=== PATIENT | male | born 1985 | race Caucasian/White ===

== ENCOUNTER 2017-10-26 18:18 | Observation (INO) ==
--- NOTE | 2017-10-26 18:30 | PDOC ---
Neuro Symptoms / Deficit HPI - General Chief Complaint: Neurological Complaints Stated Complaint: SEIZURE Date Seen by Provider: 10/26/17 Time Seen by Provider: 18:30 Source: POSITIVE: Patient Exam Limitations: POSITIVE: Clinical condition - History of Present Illness Initial Comments: Patient is a 31-year-old male who presents to the emergency room with a seizure. Patient earlier today was found passed out in his vehicle at work. They send him home. This evening he had a witnessed seizure by friends. Paramedics picked him up and he was postictal. He is slowly improving. Patient did bite his tongue. Patient complains of lower back pain. Mild in severity. No exacerbating or relieving factors and no radiation. Patient denies a headache. Other history does include that he has prior drug use and has heavy alcohol use. He stopped drinking about 5 days ago. - Patient Home Medications Home Medications: Home Medications EPINEPHrine Auto-Injector [Epipen Inj] 0.3 mg IM PRN PRN 02/20/14 - Patient Allergies Allergies/Adverse Reactions: Allergies 3 Allergy/AdvReac Type Severity Reaction Status Date / Time Penicillins Allergy Severe Anaphylaxis Verified 10/26/17 20:23 venom-honey bee Allergy Anaphylaxis Verified 10/26/17 20:23 [bee venom (honey bee)] Past Medical History - heen HEENT History: Denies History Cardiovascular History: Denies History Respiratory History: Denies History Gastrointestinal History: Other (please comment) Additional Gastrointestinal History: INGUINAL HERNIA CHILD Genitourinary History: Denies History Endocrine History: Denies History Musculoskeletal History: Denies History Prosthesis or Implant: No Neurological History: Denies History Blood Disorders: Denies History Psychiatric History: Denies History Cancer History: Denies History History of MDRO: No Alcohol Use: None In the Past 12 Months, Have Used or Abuse Any Substance: None Previous Surgical History: Yes Type / Date of Surgery: HERNIA CHILD Anesthesia Reactions: No Malignant Hyperthermia: No Significant Family History: No pertinent family hx Past Medical History Reviewed: Reviewed - No Changes ROS - Limitations ROS Limitations: No Limitations Constitution: REPORTS: Denies Symptoms Cardiovascular: REPORTS: Denies Cardiac Symptoms Respiratory: REPORTS: Denies Resp Symptoms Neurological: REPORTS: Seizure Activity Gastrointestinal: REPORTS: Denies GI Symptoms Endocrine: REPORTS: Denies Symptoms Musculoskeletal: REPORTS: Back Pain Genitourinary: REPORTS: Denies Symptoms Eyes: REPORTS: Denies Symptoms ENT: REPORTS: Denies Symptoms Skin: REPORTS: Denies Skin Symptoms Lympathic: REPORTS: Denies Lympathic Symptoms Immunologic: POSITIVE: Denies Symptoms Psychiatric: POSITIVE: Denies Psych Symptoms Neuro Symptoms / Deficit Exam - General Appearance General Appearance: POSITIVE: No Acute Distress - HEENT HEENT: POSITIVE: Head Inspection Nml, Other (There is a bite to the right side of the tongue. No active hemorrhage.) - Pupil Size Pupil Size: 3 mm: Bilateral - Neuro / Psych Higher Functions: POSITIVE: Oriented to Person, Oriented to Place, Oriented to Time, Normal Speech Cranial Nerves: POSITIVE: Normal As Tested Cerebellar: POSITIVE: Normal As Tested Peripheral Exam: POSITIVE: Sensation Normal, Motor Normal. NEGATIVE: Weakness - Neck Neck: POSITIVE: Supple, Non-Tender - Respiratory Respiratory: POSITIVE: No Respiratory Distress, Breath Sounds Normal - Cardiovascular Cardiovascular: POSITIVE: Regular Rate & Rhythm - Abdomen Abdomen: Soft: (All Quadrants), Denies Tenderness: (All Quadrants) - Skin Skin: POSITIVE: Intact, Normal For Race, Warm, Dry - Extremities Extremity: Non-Tender: (All Extremities) Additional Extremities Details: There is some mild tenderness to palpation or lumbar spine. No deformity. Neuro Symptom/Deficit Progress - Results Reviewed by me Xrays/CTs/US Reviewed by me: Yes Lab Results Reviewed by Me: Yes CBC and BMP: 10/26/17 18:57 10/26/17 18:57 Lab Results:: Laboratory Results 3 10/26/17 10/26/17 10/26/17 18:55 18:55 18:57 WBC 8.14 RBC 4.42 L Hgb 16.5 Hct 45.1 MCV 102.0 H MCH 37.3 H MCHC 36.6 RDW Std Deviation 52.7 H RDW Coeff of Kori 14.2 Plt Count 146 MPV 8.8 Immature Gran % (Auto) 0.2 Neut % (Auto) 74.8 Lymph % (Auto) 12.4 [place] % (Auto) 12.3 Eos % (Auto) 0.1 Baso % (Auto) 0.2 Immature Gran # (Auto) 0.02 Neut # (Auto) 6.08 Lymph # (Auto) 1.01 [place] # (Auto) 1.00 H Eos # (Auto) 0.01 Baso # (Auto) 0.02 WBC Morphology Comment Normal morphology Plt Morphology Comment Normal morphology RBC Morph Comment Normal morphology PT INR Sodium Potassium Chloride Carbon Dioxide Anion Gap BUN Creatinine Estimated GFR BUN/Creatinine Ratio Glucose Calculated Osmolality Calcium Magnesium 1.6 Total Bilirubin AST ALT Alkaline Phosphatase Total Protein Albumin Globulin Albumin/Globulin Ratio Ur Collection Type Voided specimen U Specif Grav (Refrac) 1.007 Urine Opiates Screen Negative Ur Buprenorphine Negative Ur Oxycodone Screen Negative Urine Methadone Screen Negative Ur Propoxyphene Screen Negative Barbiturate Screen Negative U Tricyclic Antidepress Negative Phencyclidine Screen Negative Amphetamines Screen Negative U Methamphetamines Scrn Negative Benzodiazepines Screen Negative Cocaine Screen Negative U Marijuana (THC) Screen Negative Serum Alcohol 3 10/26/17 10/26/17 18:57 18:57 WBC RBC Hgb Hct MCV MCH MCHC RDW Std Deviation RDW Coeff of Kori Plt Count MPV Immature Gran % (Auto) Neut % (Auto) Lymph % (Auto) [place] % (Auto) Eos % (Auto) Baso % (Auto) Immature Gran # (Auto) Neut # (Auto) Lymph # (Auto) [place] # (Auto) Eos # (Auto) Baso # (Auto) WBC Morphology Comment Plt Morphology Comment RBC Morph Comment PT 10.8 INR 1.05 Sodium 135 Potassium 3.3 L Chloride 97 L Carbon Dioxide 21 L Anion Gap 17 BUN 13 Creatinine 0.9 Estimated GFR > 60 BUN/Creatinine Ratio 14.44 Glucose 135 H Calculated Osmolality 281.0 Calcium 9.3 Magnesium Total Bilirubin 1.6 H AST 182 H ALT 61 Alkaline Phosphatase 75 Total Protein 7.1 Albumin 4.5 Globulin 2.7 Albumin/Globulin Ratio 1.60 Ur Collection Type U Specif Grav (Refrac) Urine Opiates Screen Ur Buprenorphine Ur Oxycodone Screen Urine Methadone Screen Ur Propoxyphene Screen Barbiturate Screen U Tricyclic Antidepress Phencyclidine Screen Amphetamines Screen U Methamphetamines Scrn Benzodiazepines Screen Cocaine Screen U Marijuana (THC) Screen Serum Alcohol < 10 EKG Interpreted/Reviewed By Me:: Yes (sinus rhythm. No arrhythmia.) - Patient's Progress MDM / ED Course: Patient is a 31-year-old male who presents to the emergency department after having what appears to be 2 seizures. Patient had a CT scan of his head which demonstrates no evidence of acute intracranial abnormality. Laboratory studies demonstrate mild elevation in AST. I suspect this may be secondary to Zocor use. His potassium slightly low. EKG demonstrates no evidence of arrhythmia. X-ray lumbar spine demonstrates evidence acute fracture interpreted by myself pending radiology overview. I'm suspicious that the seizures is secondary to alcohol withdrawal at this time. Cannot completely exclude the patient is developing an underlying seizure disorder. He was given normal saline bolus also treated with ibuprofen. Patient was treated with Ativan. Given 2 likely seizures today with concerning history of alcohol withdrawal patient will be admitted to hospitalist for further evaluation. Patient Care Time - Estimated PCT Patient Care Time (In Minutes): 35 Vital Signs - Recent Vital Signs Vital Signs: Vital Signs (Last 8 hours) Temp Pulse Pulse Resp BP BP Pulse Ox 10/26/17 21:06 98.0 F 81 19 124/78 10/26/17 20:45 98 F 81 19 124/78 95 10/26/17 20:29 99.4 F 87 16 122/79 96 10/26/17 18:19 96.6 F L 97 18 152/102 97 - VS Reviewed Vital Signs Reviewed: Yes Discharge Clinical Impression: Seizure Discharge Disposition: Admit to Inpatient Condition: Good Date Decision to Admit to Inpatient: 10/26/17 Time Decision to Admit to Inpatient: 19:54
[2017-10-26] MEDS ORDERED: Sodium Chloride 0.9% 1,000 ML PRIMARY IV ONE (18:31)
[2017-10-26] MEDS ORDERED: LORazepam 2 MG/1 ML VIAL IVP ONE (18:31)
--- NOTE | 2017-10-26 18:44 | EKG ---
[address] [address] Measurements Intervals [place] Rate: 92 P: 48 PA: 157 QRS: 26 QRSD: 97 T: 37 QT: 351 QTc: 400 Interpretive Statements SINUS RHYTHM No previous ECG available for comparison Electronically Signed On 10-26-17 22:14:55 MDT by Harvey Parr [email or web address]
[2017-10-26 19:00] LABS: BASOPHILS # (AUTO) 0.02 10*3/UL; BASOPHILS % (AUTO) 0.2 % (0-1); EOSINOPHILS # (AUTO) 0.01 10*3/UL; EOSINOPHILS % (AUTO) 0.1 % (0-8); Hematocrit [HCT] 45.1 % (42.0-52.0); Hemoglobin [HGB] 16.5 g/dL (14.0-18.0); LYMPHOCYTES # (AUTO) 1.01 10*3/uL; MEAN CORPUSCULAR HEMOGLOBIN 37.3 PG (27-31); MEAN CORPUSCULAR HGB CONC 36.6 g/dL (33-37); MEAN PLATELET VOLUME 8.8 FL (7.4-12.2); MONOCYTES % (AUTO) 12.3 % (5-15); NEUTROPHILS # (AUTO) 6.08 10*3/UL; NEUTROPHILS % (AUTO) 74.8 % (50-80); RED BLOOD COUNT 4.42 10^6/uL (4.70-6.10)
[2017-10-26 19:05] LABS: PLATELET MORPHOLOGY COMMENT NORMAL MORPHOLOGY (NORM); RBC MORPHOLOGY COMMENT NORMAL MORPHOLOGY (NORM); WBC MORPHOLOGY COMMENT NORMAL MORPHOLOGY (NORM)
[2017-10-26 19:09] LABS: BLOOD UREA NITROGEN 13 mg/dL (7-22); BUN/CREATININE RATIO 14.44 (6-20); SERUM ALBUMIN 4.5 g/dL (3.5-4.8)
--- NOTE | 2017-10-26 19:28 | DI ---
CT HEAD SCAN WITHOUT IV CONTRAST, 10/26/2017 6:31 PM : Clinical History: Seizure. Previous Exam: None at this facility. Scans are obtained from the foramen magnum to the vertex without IV contrast. The fourth and third ventricles are of normal size, shape, position and contour. 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 The ventricles are otherwise unremarkable. There are no abnor mal areas of increased or decreased density. There is mild cerebellar and cerebral atrophy for the pa shanellnt's stated age of 31 years. There are no extracerebral mantles or shift of the midline structures . Bone window evaluation is normal. The paranasal sinuses are normal. READIN. There is no evidence of an intracranial mass or hemorrhagic focus. There is no old or new bland i nfarct. 2. Mild cerebellar and cerebral atrophy for the patient's stated age of 31 years.
--- NOTE | 2017-10-26 19:53 | DI ---
LUMBAR SPINE SERIES, 10/26/2017 6:31 PM: Clinical History: Trauma. Previous Exam: None at this facility. Upright AP and lateral and upright lateral flexion and extension views are submitted. The vertebral b odies are of normal height and size. No fractures are identified. There is mild L4-5 and L5-S1 disc s pace narrowing. There is a minimal grade 1 reverse spondylolisthesis at L5-S1. The pedicles and poste rior elements are unremarkable. Both SI joints are normal. Readin. There is no fracture identified. 2. Mild L4-5 and L5-S1 disc space narrowing with a minimal grade 1 reverse spondylolisthesis at L5-S 1.
[2017-10-26] MEDS ORDERED: IBUPROFEN 600 MG TABLET PO ONE (19:58)
--- NOTE | 2017-10-26 20:30 | PDOC ---
HPI - History of Present Illness Chief Complaint: seizures History of Present Illness: This very nice 31-year-old gentleman who presented to the emergency room with the witnessed seizure. He was found earlier today passed out and his vehicle at work and later this evening had a witnessed seizure by friends. When the paramedics picked him up. Was postictal he did bite his tongue he also has prior drug use and heavy alcohol use. Drinking about 5 days ago. Will be admitted for observation and to avoid further seizures and electrolyte replacement. He still complaining of some back pain 7 out of 10 he is awake coherent he usually drinks cranberry and vodka about a pint 3 or 4 times a week denies chest pain nausea vomiting Past Medical History Tobacco Use: Current Every Day Smoker In the Past 12 Months, Have Used or Abuse Any of the Following Substance: None Alcohol Use: Heavy Medication / Allergies Home Medications: Home Medications 3 Medication Instructions Recorded Confirmed Type EPINEPHrine Auto-Injector [Epipen 0.3 mg IM PRN PRN 02/20/14 10/26/17 History Inj] Allergies/Adverse Reactions: Allergies 3 Allergy/AdvReac Type Severity Reaction Status Date / Time Penicillins Allergy Severe Anaphylaxis Verified 10/26/17 20:23 venom-honey bee Allergy Anaphylaxis Verified 10/26/17 20:23 [bee venom (honey bee)] Review of Systems - Review of Systems All Systems: Reviewed & No Additional Complaints Except as Stated - Respiratory Respiratory: DENIES: Negative System Review, Cough, Sputum, Dyspnea At Rest, Dyspnea with Exertion, Pleuritic Pain, Hemoptysis, Wheezing, Other, See HPI - Cardiovascular Cardiovascular: DENIES: Negative System Review, Chest Pain, Edema, Syncope, Palpitations, Orthopnea, Paroxysmal Nocturnal Dyspnea, Other, See HPI - Gastrointestinal Gastrointestinal / Abdominal: DENIES: Negative System Review, Nausea, Vomiting, Diarrhea, Constipation, Abdominal Pain, Bloody Stool, Poor Appetite, Heartburn, Regurgitation, Bloating, Lactose Intolerance, Melena, Bright Red Blood per Rectum, Other, See HPI - Neurological Neurologic: DENIES: Numbness/Paresthesia Exam - Vitals Vital Signs: Vital Signs Temperature 96.6 F Pulse Rate [Pulse Oximeter] 97 Respiratory Rate 18 Blood Pressure [Left Arm] 152/102 Pulse Ox 97 Oxygen Delivery Method Room Air Height 5 ft 11 in - General General Appearance: No Acute Distress, Cooperative - Respiratory Respiratory Exam: POSITIVE: Clear to Auscultation - Bilaterally, Breathing Non Labored, Normal To Percussion, Normal to Percussion and Palpation - Cardiovascular Cardiovascular Exam: POSITIVE: RRR, No Murmur, No Clicks, No Gallops, No Rubs, PMI Non-Displaced - GI/Abdominal GI/Abdominal Exam: POSITIVE: Normal Bowel Sounds, Non Tender, Non Distended, Soft, No Masses, No Hepatomegaly, No Splenomegaly, No Organomegaly - Extremities Extremities Exam: POSITIVE: No Clubbing Present, No Edema Present, No Cyanosis Present - Neurological Neurological Exam: POSITIVE: Alert, No Facial Droop, Speech Intact / Clear Results - Labs CBC and BMP: 10/26/17 18:57 10/26/17 18:57 Assessment and Plan - Patient Problems (1) Alcohol withdrawal Current Visit: Yes Status: Acute Comment: ciwa with ativan,thiamine iv fluids Code(s): F10.239 - Alcohol dependence with withdrawal, unspecified (2) Seizure Current Visit: Yes Status: Acute Comment: secondary to etoh withdraw Code(s): R56.9 - Unspecified convulsions (3) Hypokalemia Current Visit: Yes Status: Acute Comment: replace Code(s): E87.6 - Hypokalemia (4) Hypomagnesemia Current Visit: Yes Status: Acute Comment: Replace 2 g Code(s): E83.42 - Hypomagnesemia (5) Back pain Current Visit: Yes Status: Acute Comment: X-rays within normal limits we'll use 1 mg of morphine every 3 hours when necessary pain Code(s): M54.9 - Dorsalgia, unspecified
[2017-10-26] MEDS ORDERED: MAG HYDROX/AL HYDROX/SIMETH 30 ML SUSP PO PRN (20:45)
[2017-10-26] MEDS ORDERED: Loperamide Tab 2 MG TABLET PO PRN (20:45)
[2017-10-26] MEDS ORDERED: LORazepam Inj(ETOH withdrawal) 2 MG/ML VIAL IVP PRN ×2 (20:45)
[2017-10-26] MEDS ORDERED: LIDOCAINE W/ SODIUM BICARB 0.5 ML SYR SUBD PRN (20:45)
[2017-10-26] MEDS ORDERED: MAGNESIUM 400 MG/5 ML - 30 ML (MILK OF MAGNESIA) PO PRN (20:45)
[2017-10-26] MEDS ORDERED: ONDANSETRON 4 MG/2 ML VIAL IV PRN (20:45)
[2017-10-26] MEDS ORDERED: THIAMINE 100 MG/1 ML - 2 ML IM SCH (20:45)
[2017-10-26 21:08] LABS: URINE SAMPLE TYPE VOIDED SPECIMEN; URINE SPECIFIC GRAVITY - MAN 1.007
[2017-10-26 21:09] LABS: AMPHETAMINE SCREEN NEGATIVE (NEG); CANNABINOID SCREEN,URINE NEGATIVE (NEG); COCAINE SCREEN NEGATIVE (NEG); METHADONE URINE SCREEN NEGATIVE (NEG); METHAMPHETAMINES SCREEN,URINE NEGATIVE (NEG); OPIATE SCREEN,URINE NEGATIVE (NEG)
[2017-10-26] MEDS ORDERED: Sodium Chloride 0.9% 1,000 ML with Multivitamin Inj 10 ML, Thiamine Inj 100 MG, Folic A... IV SCH ×5 (21:15)
[2017-10-26] MEDS: MAGNESIUM OXIDE 400 MG TABLET PO SCH (21:15)
[2017-10-26] MEDS: HEPARIN 5000 UNIT/1 ML SUBCUT SCH (21:15)
[2017-10-26] MEDS ORDERED: Magnesium Sulfate 2gm (Premix) 2 GM/50 ML BAG IV ONE (21:57)
[2017-10-26] MEDS ORDERED: LORazepam 2 MG/1 ML VIAL IVP PRN (22:04)
[2017-10-27] MEDS: MORPHINE SULFATE 2 MG/1 ML IVP PRN ×2 (02:13→05:30)
[2017-10-27 04:30] LABS: BASOPHILS # (AUTO) 0.03 10*3/UL; BASOPHILS % (AUTO) 0.4 % (0-1); EOSINOPHILS # (AUTO) 0.08 10*3/UL; EOSINOPHILS % (AUTO) 1.1 % (0-8); Hematocrit [HCT] 43.5 % (42.0-52.0); Hemoglobin [HGB] 15.6 g/dL (14.0-18.0); LYMPHOCYTES # (AUTO) 1.49 10*3/uL; MEAN CORPUSCULAR HEMOGLOBIN 36.7 PG (27-31); MEAN CORPUSCULAR HGB CONC 35.9 g/dL (33-37); MEAN CORPUSCULAR VOLUME 102.4 FL (80-90); MEAN PLATELET VOLUME 9.1 FL (7.4-12.2); MONOCYTES # (AUTO) 0.91 10*3/UL (0.3-0.8); NEUTROPHILS # (AUTO) 5.04 10*3/UL; NEUTROPHILS % (AUTO) 66.4 % (50-80); RED BLOOD COUNT 4.25 10^6/uL (4.70-6.10)
[2017-10-27 04:38] LABS: BLOOD UREA NITROGEN 11 mg/dL (7-22); BUN/CREATININE RATIO 15.71 (6-20); SERUM ALBUMIN 3.7 g/dL (3.5-4.8)
[2017-10-27 04:48] LABS: PLATELET MORPHOLOGY COMMENT NORMAL MORPHOLOGY (NORM); RBC MORPHOLOGY COMMENT NORMAL MORPHOLOGY (NORM); WBC MORPHOLOGY COMMENT NORMAL MORPHOLOGY (NORM)
[2017-10-27] MEDS: HEPARIN 5000 UNIT/1 ML SUBCUT SCH (05:27)
[2017-10-27] MEDS ORDERED: MORPHINE SULFATE 2 MG/1 ML IVP PRN (05:34)
[2017-10-27] MEDS ORDERED: MORPHINE SULFATE 2 MG/1 ML IVP ONE (05:35)
[2017-10-27] MEDS ORDERED: KETOROLAC 15 MG/1 ML VIAL IVP PRN (05:54)
[2017-10-27 07:21] VITALS: O2SAT 95
[2017-10-27 07:25] VITALS: BP 122/82; RESP 12; TEMP 97.7
[2017-10-27] MEDS: MAGNESIUM OXIDE 400 MG TABLET PO SCH (08:42)
[2017-10-27] MEDS ORDERED: PANTOPRAZOLE IV 40 MG VIAL IVP SCH (09:00)
[2017-10-27] MEDS ORDERED: POTASSIUM CHLORIDE 20 MEQ TAB PO ONE (11:26)
--- NOTE | 2017-10-27 12:14 | DCSUMMARY ---
Hospitalization Summary Admit Date: 10/26/2017 Discharge Date: 10/27/17 Primary Diagnosis:: alcohol withdrawal seizures, resolved Secondary Diagnosis:: alcohol withdrawal, resolved Hospital Course: This is a 31 YO male that presented to the ER having stopped drinking 5 days prior to presentation. The patient had an alcohol withdrawal seizure. The patient was admitted to the hospital for CIWA protocol. He is not having any symptoms of withdrawal now. He wants to go home. The patient's electrolytes were replaced. He does not have a vitamin B12 deficiency. Assessment and Plan: 1. As per discharge assessments noted 2. Disposition: patient is discharged home. 3. Condition on discharge, stable and improved. 4. Diet: regular diet 5. Activities: resume normal activities, but no alcohol. 6. Follow-Up: 1. See Dr. Cervantes in [place], [place] in one week and get a basic metabolic panel. 2. 7. Medications at the Time of Discharge: Home Medications 3 Medication Instructions Recorded Confirmed Type EPINEPHrine Auto-Injector [Epipen 0.3 mg IM PRN PRN 02/20/14 10/26/17 History Inj] Potassium Chloride [Klor-Con M20] 20 meq PO BID #14 [email or web address] 10/27/17 Rx Exam - Vitals Vital Signs: Vital Signs Temperature 97.7 F Temperature Source Temporal Artery Scan Pulse Rate [Pulse Oximeter] 91 Pulse Rate 95 Respiratory Rate 12 Blood Pressure [Right Arm] 122/82 Blood Pressure [Left Arm] 124/78 Blood Pressure 122/82 Pulse Ox 95 Oxygen Delivery Method Room Air Height 5 ft 11 in Weight 148 lb - General General Appearance: No Acute Distress, Cooperative - Head Head Exam: Normal Inspection, Normocephalic, Atraumatic - Eye Eye Exam: POSITIVE: No Scleral Icterus - ENT ENT Exam: POSITIVE: Mucous Membranes Moist - Respiratory Respiratory Exam: POSITIVE: Clear to Auscultation - Bilaterally, Breathing Non Labored - Cardiovascular Cardiovascular Exam: POSITIVE: RRR, No Murmur, No Clicks, No Gallops, No Rubs, No JVD - GI/Abdominal GI/Abdominal Exam: POSITIVE: Normal Bowel Sounds, Non Tender, Non Distended, Soft - Extremities Extremities Exam: POSITIVE: No Clubbing Present - Back Back Exam: POSITIVE: Normal Inspection - Neurological Neurological Exam: POSITIVE: Alert, Oriented x 3, No Facial Droop, Speech Intact / Clear, Moves All Extremities Equally Additional Neurological Exam Details: no tremors - Psychiatric Psychiatric Exam: POSITIVE: Normal Affect, Normal Mood Data Peritnent Studies: Laboratory Results 10/26/17 10/26/17 10/26/17 Range/Units 18:55 18:55 18:57 WBC 8.14 (4.8-10.8) 10^3/uL RBC 4.42 L (4.70-6.10) 10^6/uL Hgb 16.5 (14.0-18.0) g/dL Hct 45.1 (42.0-52.0) % MCV 102.0 H (80-90) FL MCH 37.3 H (27-31) PG MCHC 36.6 (33-37) g/dL RDW Std Deviation 52.7 H (39-50) fL RDW Coeff of Kori 14.2 (11.5-14.5) % Plt Count 146 (140-350) 10*3/uL MPV 8.8 (7.4-12.2) FL Immature Gran % (Auto) 0.2 (0-5) % Neut % (Auto) 74.8 (50-80) % Lymph % (Auto) 12.4 (10-50) % [place] % (Auto) 12.3 (5-15) % Eos % (Auto) 0.1 (0-8) % Baso % (Auto) 0.2 (0-1) % Immature Gran # (Auto) 0.02 10*3/UL Neut # (Auto) 6.08 10*3/UL Lymph # (Auto) 1.01 10*3/uL [place] # (Auto) 1.00 H (0.3-0.8) 10*3/UL Eos # (Auto) 0.01 10*3/UL Baso # (Auto) 0.02 10*3/UL WBC Morphology Comment Normal morphology (NORM) Plt Morphology Comment Normal morphology (NORM) RBC Morph Comment Normal morphology (NORM) PT (9.7-11.4) secs INR (0.00-5.90) N/A Sodium (135-145) meq/L Potassium (3.8-5.2) meq/L Chloride (98-112) meq/L Carbon Dioxide (23-33) meq/L Anion Gap (5-20) BUN (7-22) mg/dL Creatinine (0.70-1.50) mg/dL Estimated GFR (>60 ml/min/1.73m(2)) BUN/Creatinine Ratio (6-20) Glucose (78-110) mg/dL Calculated Osmolality (267-292) mOsm/kg Lactic Acid (0.70-2.10) MMOL/L Calcium (8.7-10.7) mg/dL Magnesium 1.6 (1.6-2.4) mg/dL Total Bilirubin (0.3-1.2) mg/dL AST (21-57) IU/L ALT (21-72) IU/L Alkaline Phosphatase (38-126) IU/L Total Protein (6.1-8.0) g/dL Albumin (3.5-4.8) g/dL Globulin (2.50-4.10) g/dL Albumin/Globulin Ratio (1.3-2.0) mg/g Vitamin B12 (239-931) pg/mL Serum Folate (2.76-20.0) NG/ML Ur Collection Type Voided specimen U Specif Grav (Refrac) 1.007 Urine Opiates Screen Negative (NEG) Ur Buprenorphine Negative (NEG) Ur Oxycodone Screen Negative (NEG) Urine Methadone Screen Negative (NEG) Ur Propoxyphene Screen Negative (NEG) Barbiturate Screen Negative (NEG) U Tricyclic Antidepress Negative (NEG) Phencyclidine Screen Negative (NEG) Amphetamines Screen Negative (NEG) U Methamphetamines Scrn Negative (NEG) Benzodiazepines Screen Negative (NEG) Cocaine Screen Negative (NEG) U Marijuana (THC) Screen Negative (NEG) Serum Alcohol (0-10) mg/dL 10/26/17 10/26/17 10/27/17 Range/Units 18:57 18:57 04:22 WBC 7.58 (4.8-10.8) 10^3/uL RBC 4.25 L (4.70-6.10) 10^6/uL Hgb 15.6 (14.0-18.0) g/dL Hct 43.5 (42.0-52.0) % MCV 102.4 H (80-90) FL MCH 36.7 H (27-31) PG MCHC 35.9 (33-37) g/dL RDW Std Deviation 53.2 H (39-50) fL RDW Coeff of Kori 14.4 (11.5-14.5) % Plt Count 133 L (140-350) 10*3/uL MPV 9.1 (7.4-12.2) FL Immature Gran % (Auto) 0.4 (0-5) % Neut % (Auto) 66.4 (50-80) % Lymph % (Auto) 19.7 (10-50) % [place] % (Auto) 12.0 (5-15) % Eos % (Auto) 1.1 (0-8) % Baso % (Auto) 0.4 (0-1) % Immature Gran # (Auto) 0.03 10*3/UL Neut # (Auto) 5.04 10*3/UL Lymph # (Auto) 1.49 10*3/uL [place] # (Auto) 0.91 H (0.3-0.8) 10*3/UL Eos # (Auto) 0.08 10*3/UL Baso # (Auto) 0.03 10*3/UL WBC Morphology Comment Normal morphology (NORM) Plt Morphology Comment Normal morphology (NORM) RBC Morph Comment Normal morphology (NORM) PT 10.8 (9.7-11.4) secs INR 1.05 (0.00-5.90) N/A Sodium 135 (135-145) meq/L Potassium 3.3 L (3.8-5.2) meq/L Chloride 97 L (98-112) meq/L Carbon Dioxide 21 L (23-33) meq/L Anion Gap 17 (5-20) BUN 13 (7-22) mg/dL Creatinine 0.9 (0.70-1.50) mg/dL Estimated GFR > 60 (>60 ml/min/1.73m(2)) BUN/Creatinine Ratio 14.44 (6-20) Glucose 135 H (78-110) mg/dL Calculated Osmolality 281.0 (267-292) mOsm/kg Lactic Acid (0.70-2.10) MMOL/L Calcium 9.3 (8.7-10.7) mg/dL Magnesium (1.6-2.4) mg/dL Total Bilirubin 1.6 H (0.3-1.2) mg/dL AST 182 H (21-57) IU/L ALT 61 (21-72) IU/L Alkaline Phosphatase 75 (38-126) IU/L Total Protein 7.1 (6.1-8.0) g/dL Albumin 4.5 (3.5-4.8) g/dL Globulin 2.7 (2.50-4.10) g/dL Albumin/Globulin Ratio 1.60 (1.3-2.0) mg/g Vitamin B12 (239-931) pg/mL Serum Folate (2.76-20.0) NG/ML Ur Collection Type U Specif Grav (Refrac) Urine Opiates Screen (NEG) Ur Buprenorphine (NEG) Ur Oxycodone Screen (NEG) Urine Methadone Screen (NEG) Ur Propoxyphene Screen (NEG) Barbiturate Screen (NEG) U Tricyclic Antidepress (NEG) Phencyclidine Screen (NEG) Amphetamines Screen (NEG) U Methamphetamines Scrn (NEG) Benzodiazepines Screen (NEG) Cocaine Screen (NEG) U Marijuana (THC) Screen (NEG) Serum Alcohol < 10 (0-10) mg/dL 10/27/17 10/27/17 10/27/17 Range/Units 04:22 04:22 04:22 WBC (4.8-10.8) 10^3/uL RBC (4.70-6.10) 10^6/uL Hgb (14.0-18.0) g/dL Hct (42.0-52.0) % MCV (80-90) FL MCH (27-31) PG MCHC (33-37) g/dL RDW Std Deviation (39-50) fL RDW Coeff of Kori (11.5-14.5) % Plt Count (140-350) 10*3/uL MPV (7.4-12.2) FL Immature Gran % (Auto) (0-5) % Neut % (Auto) (50-80) % Lymph % (Auto) (10-50) % [place] % (Auto) (5-15) % Eos % (Auto) (0-8) % Baso % (Auto) (0-1) % Immature Gran # (Auto) 10*3/UL Neut # (Auto) 10*3/UL Lymph # (Auto) 10*3/uL [place] # (Auto) (0.3-0.8) 10*3/UL Eos # (Auto) 10*3/UL Baso # (Auto) 10*3/UL WBC Morphology Comment (NORM) Plt Morphology Comment (NORM) RBC Morph Comment (NORM) PT (9.7-11.4) secs INR (0.00-5.90) N/A Sodium 138 (135-145) meq/L Potassium 3.3 L (3.8-5.2) meq/L Chloride 106 (98-112) meq/L Carbon Dioxide 23 (23-33) meq/L Anion Gap 9 (5-20) BUN 11 (7-22) mg/dL Creatinine 0.7 (0.70-1.50) mg/dL Estimated GFR > 60 (>60 ml/min/1.73m(2)) BUN/Creatinine Ratio 15.71 (6-20) Glucose 75 L (78-110) mg/dL Calculated Osmolality 283.0 (267-292) mOsm/kg Lactic Acid 0.6 L (0.70-2.10) MMOL/L Calcium 8.5 L (8.7-10.7) mg/dL Magnesium (1.6-2.4) mg/dL Total Bilirubin 1.7 H (0.3-1.2) mg/dL AST 128 H (21-57) IU/L ALT 56 (21-72) IU/L Alkaline Phosphatase 67 (38-126) IU/L Total Protein 6.1 (6.1-8.0) g/dL Albumin 3.7 (3.5-4.8) g/dL Globulin 2.4 L (2.50-4.10) g/dL Albumin/Globulin Ratio 1.50 (1.3-2.0) mg/g Vitamin B12 832 (239-931) pg/mL Serum Folate > 20.0 H (2.76-20.0) NG/ML Ur Collection Type U Specif Grav (Refrac) Urine Opiates Screen (NEG) Ur Buprenorphine (NEG) Ur Oxycodone Screen (NEG) Urine Methadone Screen (NEG) Ur Propoxyphene Screen (NEG) Barbiturate Screen (NEG) U Tricyclic Antidepress (NEG) Phencyclidine Screen (NEG) Amphetamines Screen (NEG) U Methamphetamines Scrn (NEG) Benzodiazepines Screen (NEG) Cocaine Screen (NEG) U Marijuana (THC) Screen (NEG) Serum Alcohol (0-10) mg/dL 08/15/18 Range/Units 04:22 WBC (4.8-10.8) 10^3/uL RBC (4.70-6.10) 10^6/uL Hgb (14.0-18.0) g/dL Hct (42.0-52.0) % MCV (80-90) FL MCH (27-31) PG MCHC (33-37) g/dL RDW Std Deviation (39-50) fL RDW Coeff of Kori (11.5-14.5) % Plt Count (140-350) 10*3/uL MPV (7.4-12.2) FL Immature Gran % (Auto) (0-5) % Neut % (Auto) (50-80) % Lymph % (Auto) (10-50) % [place] % (Auto) (5-15) % Eos % (Auto) (0-8) % Baso % (Auto) (0-1) % Immature Gran # (Auto) 10*3/UL Neut # (Auto) 10*3/UL Lymph # (Auto) 10*3/uL [place] # (Auto) (0.3-0.8) 10*3/UL Eos # (Auto) 10*3/UL Baso # (Auto) 10*3/UL WBC Morphology Comment (NORM) Plt Morphology Comment (NORM) RBC Morph Comment (NORM) PT (9.7-11.4) secs INR (0.00-5.90) N/A Sodium (135-145) meq/L Potassium (3.8-5.2) meq/L Chloride (98-112) meq/L Carbon Dioxide (23-33) meq/L Anion Gap (5-20) BUN (7-22) mg/dL Creatinine (0.70-1.50) mg/dL Estimated GFR (>60 ml/min/1.73m(2)) BUN/Creatinine Ratio (6-20) Glucose (78-110) mg/dL Calculated Osmolality (267-292) mOsm/kg Lactic Acid (0.70-2.10) MMOL/L Calcium (8.7-10.7) mg/dL Magnesium 2.3 (1.6-2.4) mg/dL Total Bilirubin (0.3-1.2) mg/dL AST (21-57) IU/L ALT (21-72) IU/L Alkaline Phosphatase (38-126) IU/L Total Protein (6.1-8.0) g/dL Albumin (3.5-4.8) g/dL Globulin (2.50-4.10) g/dL Albumin/Globulin Ratio (1.3-2.0) mg/g Vitamin B12 (239-931) pg/mL Serum Folate (2.76-20.0) NG/ML Ur Collection Type U Specif Grav (Refrac) Urine Opiates Screen (NEG) Ur Buprenorphine (NEG) Ur Oxycodone Screen (NEG) Urine Methadone Screen (NEG) Ur Propoxyphene Screen (NEG) Barbiturate Screen (NEG) U Tricyclic Antidepress (NEG) Phencyclidine Screen (NEG) Amphetamines Screen (NEG) U Methamphetamines Scrn (NEG) Benzodiazepines Screen (NEG) Cocaine Screen (NEG) U Marijuana (THC) Screen (NEG) Serum Alcohol (0-10) mg/dL Patient Problems - Patient Problem List (1) Alcohol withdrawal seizure Current Visit: Yes Status: Acute Code(s): F10.239 - Alcohol dependence with withdrawal, unspecified; R56.9 - Unspecified convulsions Qualifiers: Complication of substance-induced condition: uncomplicated Qualified Code(s ): F10.230 - Alcohol dependence with withdrawal, uncomplicated Category: Medical (2) Hypokalemia Current Visit: Yes Status: Acute Code(s): E87.6 - Hypokalemia Category: Medical
== END 2017-10-27 12:55 | disposition home or self-care (01) ==
LOC: ER 18:18 → MED/SURG 18:18
PROVIDERS: ADMIT Internal Medicine; ATTEND Internal Medicine